=== PATIENT | female | born 1960 | race Hispanic/Latino ===

== ENCOUNTER 2025-10-23 09:19 | Emergency (ER) | payer OTHER ==
[~2025-10-23] VITALS: Ht 149.9 cm; Wt 81.6 kg
[2025-10-23 09:45] LABS: IMMATURE GRANULOCYTE ABSOLUTE 0.02 K/uL (0-1); NUCLEATED RED BLOOD CELLS 0.0 % (0.0-0.19); PLATELET COUNT (AUTO) 274 K/uL (130-400); RED BLOOD CELL COUNT(AUTO) 4.36 MIL/uL (4.00-5.50); RED CELL DISTRIBUTION WIDTH 14.1 % (11.0-15.5); WHITE BLOOD COUNT (AUTO) 6.1 K/uL (4.8-10.8)
--- NOTE | 2025-10-23 09:51 | NUR ---
PT ASSIGNED TO MY ED BED 10 BUT PT NOT IN THERE YET. A PT WAS JUST DISCHARGED FROM THERE.
[2025-10-23 10:05] LABS: CREATININE 0.8 mg/dL (0.5-1.0); GLOMERULAR FILTR. RATE CALC 83.0 mL/min (>90); GLUCOSE,RANDOM 103.0 mg/dL (70-105); SODIUM SERUM 136.0 mmol/L (136-145); UREA NITROGEN, BLOOD 7.0 mg/dL (7-18)
--- NOTE | 2025-10-23 10:05 | NUR ---
PT JUST NOW PLACED IN MY ED BED 10
[2025-10-23 10:09] LABS: ASPARTATE AMINOTRANSFERASE 25.0 U/L (10-37); TOTAL PROTEIN, SERUM 7.2 g/dL (6.0-8.3)
--- NOTE | 2025-10-23 11:08 | HMCIMG ---
EXAM: CR Chest, 1 View. CLINICAL HISTORY: Shortness of breath COMPARISON: None provided. FINDINGS: LUNGS: There is no mass, infiltrate, or acute pulmonary abnormality. PLEURAL SPACES: No pleural effusion or pneumothorax. MEDIASTINUM: The cardiomediastinal silhouette is within normal limits. BONES: No aggressive appearing osseous lesion seen. IMPRESSION: No acute cardiopulmonary pathology is evident. /[place]
[2025-10-23] MEDS: FAMOTIDINE 20MG VIAL IV ONE (11:39)
[2025-10-23] MEDS: 0.9%NACL 1000ML 1,000 ML IV ONE (11:40)
[2025-10-23 11:44] LABS: GLUCOSE, URINE (UA) NEGATIVE (NEGATIVE); LEUKOCYTE ESTERASE ,URINE MODERATE Leu/uL (NEGATIVE); NITRATE,URINE POSITIVE (NEGATIVE); OCCULT BLOOD,URINE MODERATE (NEGATIVE)
[2025-10-23 11:45] LABS: APPEARANCE,URINE CLOUDY (CLEAR)
[2025-10-23 12:06] LABS: RAPID GROUP A STREP positive (NEGATIVE); SARS-CoV-2, RNA, NAAT NEGATIVE SARS CoV-2 (NEGATIVE)
[2025-10-23 12:11] LABS: INFLUENZA TYPE B Negative For Type B (NEGATIVE)
[2025-10-23 12:13] LABS: INFLUENZA TYPE A Positive For Type A (NEGATIVE)
[2025-10-23] MEDS ORDERED: OSEL75 PO (12:19)
[2025-10-23] MEDS ORDERED: AMOX1TAB16 PO (12:19)
--- NOTE | 2025-10-23 12:19 | ERN ---
General Chief Complaint: Abdominal Pain Stated Complaint: ABDOMINAL PAIN Time Seen by MD: 09:31 History of Present Illness Initial Comments 64-year-old female came in for generalized body weakness. Patient has been having cough along with the fever or chills. Allergies: Coded Allergies: No Known Drug Allergies (Unverified Allergy, Unknown, 10/23/25) Past Medical History Past Medical History: Hypertension Past Surgical History: Cholecystectomy, BTL Surgical History Other: RT KNEE SURGERY ROS Dictation Cough Physical Exam General Appearance: (+) no apparent distress, (+) apparent distress Orientation: (+) alert, (+) oriented x 3 Respiratory: (+) chest non-tender, (+) lungs clear Heart: (+) regular, (+) no gallop Gastrointestinal: (+) soft, (+) non-tender, (+) no organomegaly, (+) bowel sound present Extremities: (+) normal range of motion Results Laboratory and Microbiology Lab and Micro Result Laboratory Tests Test 10/23/25 09:37 10/23/25 10:25 10/23/25 11:41 White Blood Count 6.1 K/uL (4.8-10.8) Red Blood Count 4.36 MIL/uL (4.00-5.50) Hemoglobin 13.0 g/dL (12.0-16.0) Hematocrit 40.1 % (36-48) Mean Corpuscular Volume 92.0 fL (79-99) Mean Corpuscular Hemoglobin 29.8 pg (27.0-33.0) Mean Corpuscular Hemoglobin Concent 32.4 g/dL (32.0-36.0) Red Cell Distribution Width 14.1 % (11.0-15.5) Platelet Count 274 K/uL (130-400) Mean Platelet Volume 9.7 fL (7.5-10.5) Immature Granulocyte % (Auto) 0.3 % (0-1) Neutrophils (%) (Auto) 56.7 % (40.0-77.0) Lymphocytes (%) (Auto) 30.8 % (21.0-51.0) Monocytes (%) (Auto) 9.1 % (3.0-13.0) Eosinophils (%) (Auto) 2.6 % (0.0-8.0) Basophils (%) (Auto) 0.5 % (0.0-5.0) Neutrophils # (Auto) 3.5 K/uL (1.8-7.7) Lymphocytes # (Auto) 1.9 K/uL (1.0-4.8) Monocytes # (Auto) 0.6 K/uL (0.1-1.0) Eosinophils # (Auto) 0.16 K/uL (0.00-0.70) Basophils # (Auto) 0.03 K/uL (0.00-0.20) Absolute Immature Granulocyte (auto 0.02 K/uL (0-1) Nucleated Red Blood Cells 0.0 % (0.0-0.19) Sodium Level 136 mmol/L (136-145) Potassium Level 4.0 mmol/L (3.5-5.1) Chloride Level 104 mmol/L (101-111) Carbon Dioxide Level 25 mmol/L (21-32) Blood Urea Nitrogen 7 mg/dL (7-18) Creatinine 0.8 mg/dL (0.5-1.0) Glomerular Filtration Rate Calc 83 mL/min (>90) Random Glucose 103 mg/dL (70-105) Lactic Acid Level 1.3 mmol/L (0.8-2.5) Total Calcium 8.3 mg/dL (8.5-10.1) L Total Bilirubin 0.2 mg/dL (0.2-1.0) Direct Bilirubin 0.1 mg/dL (0.0-0.3) Aspartate Amino Transf (AST/SGOT) 25 U/L (10-37) Alanine Aminotransferase (ALT/SGPT) 18 U/L (12-78) Alkaline Phosphatase 103 U/L (50-136) Troponin I High Sensitivity 9 ng/L (4-50) Total Protein 7.2 g/dL (6.0-8.3) Albumin 3.0 g/dL (3.5-5.0) L Lipase 15 U/L (16-77) L Procalcitonin 0.10 ng/mL (0.05-0.5) Urine Color YELLOW (YELLOW) Urine Appearance CLOUDY (CLEAR) H Urine pH 5.5 (5.0-8.0) Urine Specific [employer] 1.018 (1.001-1.031) Urine Protein TRACE mg/dL (NEGATIVE) H Urine Glucose (UA) NEGATIVE mg/dL (NEGATIVE) Urine Ketones NEGATIVE mg/dL (NEGATIVE) Urine Occult Blood MODERATE (NEGATIVE) H Urine Nitrate POSITIVE (NEGATIVE) H Urine Bilirubin NEGATIVE mg/dL (NEGATIVE) Urine Urobilinogen 0.2 mg/dL (0.2-1.0) Urine Leukocyte Esterase MODERATE [place]/uL Urine RBC 6-10 /HPF (0-1) H Urine WBC 6-10 /HPF (0-1) H Urine Squamous Epithelial Cells 10-25 /HPF (0-2) Urine Bacteria Many /HPF (None Seen) H Influenza Type A Antigen Positive For Type A Influenza Type B Antigen Negative For Type B SARS-CoV-2, RNA, NAAT NEGATIVE SARS CoV-2 Group A Streptococcus Rapid positive (NEGATIVE) *A MDM MDM: Differential diagnosis: Rationale: Tests considered and ordered secondary to shared decision making include: Previous outside records reviewed: Old ER visits. Risk of complication and/or morbidity or mortality of patient management: None Medications-Per medication reconciliation Need for hospitalization: Patient does not meet criteria for hospitalization. Need for emergency major/minor surgery: No There are no social concerns with this patient. Prescription drug management Prescriptions will include symptomatic care Patient's prior external medical records from other ER visits were reviewed by me as indicated. Prior testing and results from previous visits were reviewed. Prior tests were taken into account with medical decision making and resource utilization, independent historian/historians were used to obtain complete medical history. I independently interpreted the test that were performed, results were reviewed by me and considered findings on radiology if ordered. Medical management and examination interpretation discussions were had by me with other qualified healthcare professionals as indicated for the patient's care. ED Course Orders Procedure Category Date Status Time 12 Lead Ekg Tracing- EKG 10/23/25 Logged Technical 09:29 Cbc With Differential LAB 10/23/25 Complete 09:29 Basic Metabolic Panel LAB 10/23/25 Complete 09:29 Hepatic Function Panel LAB 10/23/25 Complete 09:29 Lactic Acid LAB 10/23/25 Complete 09:29 Lipase LAB 10/23/25 Complete 09:29 Procalcitonin LAB 10/23/25 Complete 09:29 Troponin I High LAB 10/23/25 Complete Sensitivity 09:29 Urinalysis LAB 10/23/25 Complete W/Microscopic 09:29 Ondansetron 4mg Inj PHA 10/23/25 Complete (Zofran 4mg Inj) 09:30 Famotidine 20mg Vial PHA 10/23/25 Complete (Pepcid 20mg Vial) 09:30 Morphine 4mg Syg PHA 10/23/25 Complete (Morphine 4mg Syg) 09:30 Covid Rna Naat LAB 10/23/25 Complete 10:10 Influenza Type A & B, LAB 10/23/25 Complete Rapid 10:10 Rapid (Group A Strep) LAB 10/23/25 Complete 10:10 Chest 1vw RAD 10/23/25 Resulted 10:10 0.9%Nacl 1000ml (Ns PHA 10/23/25 Complete 1000ml) 10:30 Culture Urine LEONIDAS 10/23/25 In Process 11:45 Ceftriaxone 1g Vial PHA 10/23/25 In Process (Rocephine 1g Inj) 12:30 Current Medications Medications (Trade) Dose Ordered Sig/Cruzito Route PRN Reason Start Time Stop Time Status Last Admin Dose Admin Ceftriaxone Sodium (ROCEphine 1G INJ) 1 gm ONCE ONCE IVPB 10/23/25 12:30 10/23/25 12:31 Famotidine (Pepcid 20mg Vial) 20 mg ONCE ONCE IV 10/23/25 09:30 10/23/25 09:31 DC 10/23/25 11:39 Morphine Sulfate (morPHINE 4MG SYG) 2 mg ONCE ONCE IVP 10/23/25 09:30 10/23/25 09:31 DC Ondansetron HCl (zoFRAN 4MG INJ) 4 mg ONCE ONCE IVP 10/23/25 09:30 10/23/25 09:31 DC 10/23/25 11:39 Sodium Chloride 1,000 ml @ 0 mls/hr ONCE ONCE IV 10/23/25 10:30 10/23/25 10:31 DC 10/23/25 11:40 Vital Signs Date Time Temp Pulse Resp B/P (MAP) Pulse Ox O2 Delivery O2 Flow Rate FiO2 10/23/25 09:22 100.0 84 18 155/75 99 Room Air DX & DISP Disposition: Discharge Departure Impression: Primary Impression: Influenza Additional Impressions: Strep pharyngitis, UTI (urinary tract infection) Condition: Stable Scripts Oseltamivir Phosphate (Tamiflu) 75 Mg Cap 75 MG PO BID for 5 Days, #5 CAP Prov: KAVON ARIZA MD 10/23/25 Amoxicillin/Potassium Clav (Amox Tr-K Clv 875-125 mg Tab) 875 Mg-125 Mg Tablet 1 EACH PO BID for 10 Days, #20 TAB 0 Refills Prov: KAVON ARIZA MD 10/23/25 Referrals: SELF,REFERRAL (PCP) KAVON ARIZA MD Oct 23, 2025 12:19
[2025-10-23 12:59] VITALS: BP 154/75; PULSE 78; RESP 18; TEMP 98.9; O2SAT 96
--- NOTE | 2025-10-23 14:50 | EKG ---
[facility] Test Date: 2025-10-23 Test Time: 09:34:31 Pat Name: ELMO LOO Department: ED Room: Gender: F Coffin Maker: [id number] : 1960 Requested By: KAVON ARIZA Order Number: [id number] Reading MD: Shey Contreras Measurements Intervals Windfall Rate: 83 P: 34 ID: [id number] QRS: 38 QRSD: 77 T: -1 QT: 348 QTc: 408 Interpretive Statements Sinus rhythm No previous ECG available for comparison Electronically Signed On 10-25-2025 08:58:05 RIVER PILOT by Shey Contreras Please click the below link to view image of tracing.
== END 2025-10-23 12:55 | disposition home or self-care (01) ==
LOC: EDH 09:19
DX: J02.0 Streptococcal pharyngitis (principal); J11.1 Influenza due to unidentified influenza virus with other respiratory manifestations; N39.0 Urinary tract infection, site not specified; I10 Essential (primary) hypertension; Z98.890 Other specified postprocedural states; Z20.822 Contact with and (suspected) exposure to COVID-19
CPT/HCPCS: 99285; 96374; 96375; 71045; 87635; 96361; 80076; 84484; 80048; 83690; 85025; 87086; 87880; 87804 ×2; 83605; 81001; 36415; 93005; 84145; J1308; J7030; J0696; J2405